=== PATIENT | male | born 1995 | race Caucasian/White ===

== ENCOUNTER 2016-11-30 23:26 | Emergency (ER) | payer OTHER ==
[2016-11-30 23:31] VITALS: TEMP 98.4
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
[2016-12-01 02:56] VITALS: BP 118/76; PULSE 94; RESP 16; O2SAT 94
== END 2016-12-01 02:56 | disposition home or self-care (01) ==
PROC: 0HQ1XZZ Repair Face Skin, External Approach (ICD-10-PCS; principal; 2016-11-30)
DX: S01.81XA Laceration without foreign body of other part of head, initial encounter (principal); S09.90XA Unspecified injury of head, initial encounter; F10.920 Alcohol use, unspecified with intoxication, uncomplicated; J45.909 Unspecified asthma, uncomplicated; V18.0XXA Pedal cycle driver injured in noncollision transport accident in nontraffic accident, initial encounter; Y99.8 Other external cause status; Y93.89 Activity, other specified